=== PATIENT | female | born 1970 | race Caucasian/White ===

== ENCOUNTER 2018-04-06 15:20 | Inpatient (IN) ==
--- NOTE | 2018-04-06 16:12 | ED ---
HPI General Chief complaint: Respiratory Symptoms Stated complaint: Doc Sent/Abnl test Time Seen by Provider: 04/06/18 16:10 Source: patient Mode of arrival: ambulatory Limitations: no limitations History of Present Illness HPI narrative: 47-year-old female patient with history of 2 weeks of shortness of breath and dyspnea on exertion, has been evaluated with chest x-ray by primary care doctor and sent in for PE study today which showed a PE in her right lung. She is sent here by primary care doctor for treatment of PE. She continues to have palpitations and shortness of breath and dyspnea on exertion use. She denies any recent long plane or car rides. She denies any other issues. She does not have previous history of PE. Related Data Home Medications Medication Instructions Recorded Confirmed amitriptyline 50 mg PO DAILY 04/06/18 04/06/18 losartan 25 mg PO DAILY 04/06/18 04/06/18 metformin 500 mg PO DAILY 04/06/18 04/06/18 Allergies Allergy/AdvReac Type Severity Reaction Status Date / Time No Known Allergies Allergy Verified 04/06/18 15:54 Review of Systems ROS: all other systems reviewed are negative [facility] Medical History Medical History Diabetes (Acute) HTN (hypertension) (Acute) History of hysterectomy (Acute) Neuropathy (Acute) Surgical History Surgical History H/O ovarian cystectomy (Acute) History of hernia surgery (Acute) Social History Social History Substance History: No History of Abuse Smoking Status: Former smoker How Often Do You Have a Drink Containing Alcohol: 4 or more times a week Recent Travel in [facility] within the Last 8 Weeks: No Recent Out of Country Travel within the Last 8 Weeks: No Immunization History Tetanus Immunization: >5 Years Exam Narrative Exam Narrative: GENERAL: Well-developed middle-age female patient who is morbidly obese, currently not in acute distress at rest. Awake and oriented 3. SKIN: Focused skin assessment warm/dry. HEAD: Atraumatic. Normocephalic. EYES: Pupils equal and round. No scleral icterus. No injection or drainage. ENT: No nasal bleeding or discharge. Mucous membranes pink and moist. NECK: Trachea midline. No JVD. CARDIOVASCULAR: Fast and regular rhythm. No murmur appreciated. RESPIRATORY: No accessory muscle use. Clear to auscultation. Breath sounds equal bilaterally. GASTROINTESTINAL: Abdomen soft, non-tender, nondistended. Hepatic and splenic margins not palpable. MUSCULOSKELETAL: No obvious deformities. No clubbing. No cyanosis. No edema. NEUROLOGICAL: Awake and alert. No obvious cranial nerve deficits. Motor grossly within normal limits. Normal speech. PSYCHIATRIC: Appropriate mood and affect; insight and judgment normal. Course Initial Documented Vital Signs Temperature 98.0 F 04/06/18 15:25 Pulse Rate 108 H 04/06/18 15:25 Respiratory Rate 18 04/06/18 15:25 Blood Pressure 167/73 H 04/06/18 15:25 Pulse Oximetry 97 04/06/18 15:25 Last Documented Vital Signs Temperature 98.0 F 04/06/18 15:25 Pulse Rate 113 H 04/06/18 15:50 Respiratory Rate 26 H 04/06/18 15:50 Blood Pressure 148/67 H 04/06/18 15:50 Pulse Oximetry 98 04/06/18 15:50 Medical Decision Making MDM Narrative Medical decision making narrative: I have received the fax from [facility] and her CTA showed moderate thrombus burden with PE and filling defects notable and segmental branches bilaterally of the pulmonary arteries. At this point, patient was initiated on heparin protocol. Case was discussed with [facility] physician who would like the patient to be admitted to Dr. Abreu. Differential Diagnosis Differential Diagnosis: Pulmonary embolism Lab Data Result diagrams: 04/06/18 16:20 04/06/18 16:20 Lab Results 04/06/18 04/06/18 04/06/18 Range/Units 16:20 16:20 16:20 WBC 9.4 (4.0-11.0) th/mm3 RBC 5.21 (4.00-5.30) mil/mm3 Hgb 15.7 H (11.6-15.3) gm/dL Hct 44.7 (35.0-46.0) % MCV 85.9 (80.0-100.0) fL MCH 30.2 (27.0-34.0) pg MCHC 35.1 (32.0-36.0) % RDW 13.3 (11.6-17.2) % Plt Count 222 (150-450) th/mm3 MPV 9.2 (7.0-11.0) fL Prelim Diff (Auto) Slide review pending Neut % (Auto) 56.4 (16.0-70.0) % Lymph % (Auto) 31.2 (9.0-44.0) % Kent % (Auto) 6.9 (0.0-8.0) % Eos % (Auto) 4.8 H (0.0-4.0) % Baso % (Auto) 0.7 (0.0-2.0) % Neut # (Auto) 5.3 (1.8-7.7) th/mm3 Lymph # (Auto) 2.9 (1.0-4.8) th/mm3 Kent # (Auto) 0.6 (0.0-0.9) th/mm3 Eos # (Auto) 0.4 (0.0-0.4) th/mm3 Baso # (Auto) 0.1 (0.0-0.2) th/mm3 WBC Differential . Diff Scan Auto diff confirmed Differential Comment . Platelet Estimate Normal (Normal) Platelet Morphology Normal (Normal) PT 9.9 (9.8-11.6) sec INR 1.0 Ratio APTT 24.0 L (24.3-30.1) sec Sodium 136 (136-145) meq/L Potassium 3.9 (3.5-5.1) meq/L Chloride 101 (98-107) meq/L Carbon Dioxide 26.4 (21.0-32.0) meq/L Anion Gap 9 (5-15) meq/L BUN 10 (7-18) mg/dL Creatinine 0.81 (0.50-1.00) mg/dL Estimated GFR 76 L (>89) mL/min Random Glucose 154 H (74-106) mg/dL Calcium 9.1 (8.5-10.1) mg/dL Total Bilirubin 0.7 (0.2-1.0) mg/dL AST 43 H (15-37) U/L ALT 69 H (10-53) U/L Alkaline Phosphatase 77 (45-117) U/L Troponin I Less than 0.02 L (0.02-0.05) ng/mL Total Protein 8.3 H (6.4-8.2) g/dL Albumin 3.6 (3.4-5.0) g/dL Discharge Plan Discharge Details Anticipated Discharge Date: 04/06/18 Physicians Team ED Provider: Kerry Boudreaux Primary Care Provider: NON STAFF,PROVIDER Rxs /Orders / Referrals /Forms Prescriptions: No Action amitriptyline 50 mg Tablet 50 mg PO DAILY RF: 0 losartan 25 mg Tablet 25 mg PO DAILY RF: 0 metformin 500 mg Tablet Extended Release 24 Hr 500 mg PO DAILY RF: 0 Discharge Interventions Interventions: Vital Signs Last Done: 04/06/18 15:50 Status ED Status: With Doctor
[2018-04-06 16:38] LABS: Baso # (Auto) 0.1 th/mm3 (0.0-0.2); Baso % (Auto) 0.7 % (0.0-2.0); Eos # (Auto) 0.4 th/mm3 (0.0-0.4); Eos % (Auto) 4.8 % (0.0-4.0); Hematocrit 44.7 % (35.0-46.0); Hemoglobin 15.7 gm/dL (11.6-15.3); Lymph # (Auto) 2.9 th/mm3 (1.0-4.8); Lymph % (Auto) 31.2 % (9.0-44.0); Mean Corpuscular HGB Conc 35.1 % (32.0-36.0); Mean Corpuscular Hemoglobin 30.2 pg (27.0-34.0); Mean Corpuscular Volume 85.9 fL (80.0-100.0); Mean Platelet Volume 9.2 fL (7.0-11.0); Mono # (Auto) 0.6 th/mm3 (0.0-0.9); Mono % (Auto) 6.9 % (0.0-8.0); Neut # (Auto) 5.3 th/mm3 (1.8-7.7); Neut % (Auto) 56.4 % (16.0-70.0); Platelet Count 222 th/mm3 (150-450); Red Blood Count 5.21 mil/mm3 (4.00-5.30); Red Cell Distribution Width 13.3 % (11.6-17.2); White Blood Count 9.4 th/mm3 (4.0-11.0)
[2018-04-06 16:45] LABS: Prothrombin Time 9.9 sec (9.8-11.6)
[2018-04-06 17:01] LABS: Albumin 3.6 g/dL (3.4-5.0); Anion Gap 9 meq/L (5-15); Aspartate Aminotransferase 43 U/L (15-37); Blood Urea Nitrogen 10 mg/dL (7-18); Calcium 9.1 mg/dL (8.5-10.1); Carbon Dioxide 26.4 meq/L (21.0-32.0); Chloride 101 meq/L (98-107); Glomerular Filtration Rate 76 mL/min (>89); Glucose,Random 154 mg/dL (74-106); Potassium 3.9 meq/L (3.5-5.1); Sodium 136 meq/L (136-145)
[2018-04-06 17:02] LABS: Alanine Aminotransferase 69 U/L (10-53)
[2018-04-06 17:06] LABS: Alkaline Phosphatase 77 U/L (45-117); Total Protein 8.3 g/dL (6.4-8.2)
[2018-04-06 17:07] LABS: Platelet Estimate Normal (Normal); Platelet Morphology Normal (Normal)
[2018-04-06] MEDS ORDERED: Heparin 10,000 UNITS/10 ML Vial (for IV use) IV.PUSH STA (17:37)
[2018-04-06] MEDS ORDERED: Heparin Drip 25,000 UNIT/250 ML BAG IV.CONT PRN ×2 (17:37→18:02)
--- NOTE | 2018-04-06 20:43 | P.HP ---
History of Present Illness Service: . [facility]: PROVIDER NON STAFF Chief Complaint: sent by pcp for admit History of Present Illness: 47-year-old female patient with history of 2 weeks of shortness of breath and dyspnea on exertion, has been evaluated with chest x-ray by primary care doctor and sent in for PE study today which showed a PE in her right lung. She is sent here by primary care doctor for treatment of PE. She continues to have palpitations and shortness of breath and dyspnea on exertion use. She denies any recent long plane or car rides. She denies any other issues. She does not have previous history of PE. In er started on heparin and admit for continued care - Diagnosis (1) Pulmonary embolism (2) Diabetes (3) Hypertension Review of Systems All other systems reviewed negative except as stated in HPI PMFSH - History History Provided By: Patient - Medical History Medical History: Medical History (Last Reviewed 04/06/18 @ 16:11 by Kerry Boudreaux MD) Diabetes HTN (hypertension) History of hysterectomy Neuropathy - Surgical History Surgical History: Surgical History (Last Reviewed 04/06/18 @ 16:11 by Kerry Boudreaux MD) H/O ovarian cystectomy History of hernia surgery - Tobacco History Tobacco Use In Past 30 Days: No Smoking Status: Former smoker - Alcohol History How Often Do You Have a Drink Containing Alcohol: 4 or more times a week - Substance Use History Substance History: No History of Abuse - Travel History Recent Travel in the [place] Within the Last 8 Weeks: No Recent Travel Out of the Country Within the Last 8 Weeks: No - Immunization History Tetanus Immunization: >5 Years Medications and Allergies Active Medications: Active Medications Heparin Sodium/Dextrose (Heparin/D5w 25,000 U/250 Ml) 25,000 unit in 250 mls @ 18 mls/hr IV.CONT TITRATE PRN; Protocol PRN Reason: Per Protocol Allergies Allergy/AdvReac Type Severity Reaction Status Date / Time No Known Allergies Allergy Verified 04/06/18 15:54 Home Medications Medication Instructions Recorded Confirmed Type amitriptyline 50 mg PO DAILY 04/06/18 04/06/18 History losartan 25 mg PO DAILY 04/06/18 04/06/18 History metformin 500 mg PO DAILY 04/06/18 04/06/18 History Exam Vital signs: Vital Signs 04/06/18 15:25 08/10/18 15:50 04/06/18 19:29 Temperature 98.0 F 98.4 F Pulse Rate 108 H 113 H 95 H Respiratory Rate 18 26 H 19 Blood Pressure 167/73 H 148/67 H 170/78 H Pulse Oximetry 97 98 98 Intake & Output 04/06/18 04/06/18 04/07/18 06:59 18:59 06:59 Weight 147.418 kg Narrative: GENERAL: SKIN: Warm and dry. HEAD: Normocephalic. EYES: No scleral icterus. No injection or drainage. NECK: Supple, trachea midline. No JVD or lymphadenopathy. CARDIOVASCULAR: Regular rate and rhythm without murmurs, gallops, or rubs. RESPIRATORY: Breath sounds equal bilaterally. No accessory muscle use. GASTROINTESTINAL: Abdomen soft, non-tender, nondistended. MUSCULOSKELETAL: No cyanosis, or edema. BACK: Nontender without obvious deformity. No CVA tenderness. Results - Labs CBC & Chem 7: 04/06/18 16:20 04/06/18 16:20 Labs: Laboratory Results - last 24 hr 04/06/18 04/06/18 04/06/18 16:20 16:20 16:20 WBC 9.4 RBC 5.21 Hgb 15.7 H Hct 44.7 MCV 85.9 MCH 30.2 MCHC 35.1 RDW 13.3 Plt Count 222 MPV 9.2 Prelim Diff (Auto) Slide review pending Neut % (Auto) 56.4 Lymph % (Auto) 31.2 Cole % (Auto) 6.9 Eos % (Auto) 4.8 H Baso % (Auto) 0.7 Neut # (Auto) 5.3 Lymph # (Auto) 2.9 Cole # (Auto) 0.6 Eos # (Auto) 0.4 Baso # (Auto) 0.1 WBC Differential . Diff Scan Auto diff confirmed Differential Comment . Platelet Estimate Normal Platelet Morphology Normal PT 9.9 INR 1.0 APTT 24.0 L Sodium 136 Potassium 3.9 Chloride 101 Carbon Dioxide 26.4 Anion Gap 9 BUN 10 Creatinine 0.81 Estimated GFR 76 L Random Glucose 154 H Calcium 9.1 Total Bilirubin 0.7 AST 43 H ALT 69 H Alkaline Phosphatase 77 Troponin I Less than 0.02 L Total Protein 8.3 H Albumin 3.6 04/06/18 17:50 WBC RBC Hgb Hct MCV MCH MCHC RDW Plt Count MPV Prelim Diff (Auto) Neut % (Auto) Lymph % (Auto) Cole % (Auto) Eos % (Auto) Baso % (Auto) Neut # (Auto) Lymph # (Auto) Cole # (Auto) Eos # (Auto) Baso # (Auto) WBC Differential Diff Scan Differential Comment Platelet Estimate Platelet Morphology PT INR APTT 23.3 L Sodium Potassium Chloride Carbon Dioxide Anion Gap BUN Creatinine Estimated GFR Random Glucose Calcium Total Bilirubin AST ALT Alkaline Phosphatase Troponin I Total Protein Albumin Caprini VTE Risk Assessment Caprini VTE Risk Assessment: Moderate/High Risk (score >= 2) Caprini Risk Assessment Model: Point Value = 1 Point Value = 2 Point Value = 3 Point Value = 5 Age 41-60 Minor surgery BMI > 25 kg/m2 Swollen legs Varicose veins or History of unexplained or recurrent spontaneous Oral contraceptives or hormone replacement Sepsis (< 1 month) Serious lung disease, including pneumonia (< 1 month) Abnormal pulmonary function Acute myocardial infarction Congestive heart failure (< 1 month) History of inflammatory bowel disease Medical patient at bed rest Age 61-74 Arthroscopic surgery Major open surgery (> 45 min) Laparoscopic surgery (> 45 min) Malignancy Confined to bed (> 72 hours) Immobilizing plaster cast Central venous access Age >= 75 History of VTE Family history of VTE Factor V Leiden Prothrombin [id number] Lupus anticoagulant Anticardiolipin antibodies Elevated serum homocysteine Heparin-induced thrombocytopenia Other congenital or acquired thrombophilia Stroke (< 1 month) Elective arthroplasty Hip, pelvis, or leg fracture Acute spinal cord injury (< 1 month) Prophylaxis Regimen: Total Risk Factor Score Risk Level Prophylaxis Regimen 0-1 Low Early ambulation 2 Moderate Order ONE of the following: *Sequential Compression Device (SCD) *Heparin 5000 units SQ BID 3-4 Higher Order ONE of the following medications: *Heparin 5000 units SQ TID *Enoxaparin/Lovenox 40 mg SQ daily (WT < 150 kg, CrCl > 30 mL/min) *Enoxaparin/Lovenox 30 mg SQ daily (WT < 150 kg, CrCl > 10-29 mL/min) *Enoxaparin/Lovenox 30 mg SQ BID (WT < 150 kg, CrCl > 30 mL/min) AND/OR *Sequential Compression Device (SCD) 5 or more Highest Order ONE of the following medications: *Heparin 5000 units SQ TID (Preferred with Epidurals) *Enoxaparin/Lovenox 40 mg SQ daily (WT < 150 kg, CrCl > 30 mL/min) *Enoxaparin/Lovenox 30 mg SQ daily (WT < 150 kg, CrCl > 10-29 mL/min) *Enoxaparin/Lovenox 30 mg SQ BID (WT < 150 kg, CrCl > 30 mL/min) AND *Sequential Compression Device (SCD) Assessment and Plan - Assessment (1) Pulmonary embolism Code(s): I26.99 - Other pulmonary embolism without acute cor pulmonale Status : Acute Plan: start heparin protocol will get venous doppler further work as per hospitalists (2) Diabetes Code(s): E11.9 - Type 2 diabetes mellitus without complications Status: Chronic Plan: continue metformin (3) Hypertension Code(s): I10 - Essential (primary) hypertension Status: Acute Plan: continue losarten - Plan further plan as case develops Code Status: full Discussed Condition With: patient (1) Pulmonary embolism Qualifiers: Chronicity: acute (3) Hypertension Qualifiers: Hypertension type: essential hypertension Qualified Code(s): I10 - Essential (primary) hypertension
[2018-04-06] MEDS ORDERED: Temazepam 15 MG Capsule PO PRN (20:44)
[2018-04-06] MEDS ORDERED: Bisacodyl 10 MG Supp RECTAL PRN (20:44)
[2018-04-06] MEDS ORDERED: Acetaminophen 325 MG Tablet PO PRN (20:44)
[2018-04-06] MEDS ORDERED: Dextrose 50% in Water 50 ML Vial IV.PUSH PRN ×2 (20:50→20:51)
--- NOTE | 2018-04-06 21:07 | P.PNADD ---
Addendum to Inpatient Note Reason for Addendum: Additional Documentation Additional information: Patient about 1 month ago had increasing cramping to both lower extremities and had arterial studies done which were normal also did receive contrast and will hold metformin and use prn vasotec IV for blood pressure
--- NOTE | 2018-04-06 21:43 | US ---
EXAM DATE: 04/06/2018 9:37 PM EDT AGE/SEX: 47 years / Female INDICATIONS: Bilateral leg swelling. CLINICAL DATA: This is the patient's initial encounter. Patient reports that signs and symptoms have been present for 1 week and indicates a pain score of 2/10. MEDICAL/SURGICAL HISTORY: Hypertension. Diabetes. Neuropathy. Hysterectomy. Hernia repair. Ova jyothi cystectomy. COMPARISON: POI, US LEG VENOUS DOPPLER, LEFT, 05/20/2011. . TECHNIQUE: Venous ultrasound of both lower extremities was performed from the inguinal ligament to t he proximal calf. Real-time, color Doppler and spectral tracing, compression and augmentation techni ques were used. FINDINGS: Right Leg: Normal compression of the deep venous system from the inguinal region to the proximal laquita f. No echogenic clot is seen. Normal response of the venous system to augmentation and respiration. Left Leg: Normal compression of the deep venous system from the inguinal region to the proximal calf . No echogenic clot is seen. Normal response of the venous system to augmentation and respiration. Other: None. CONCLUSION: Negative study. No venous thrombosis of either lower extremity. Electronically signed by: Clifford Huitron MD 04/06/2018 9:42 PM EDT
[2018-04-06] MEDS: Senna/Docusate Sodium 8.6/50 MG Tablet PO SCH (23:15)
[2018-04-06] MEDS: Insulin NovoLOG Aspart Correctional Sugar Inj SQ SCH (23:48)
[2018-04-07 05:16] LABS: Hematocrit 42.9 % (35.0-46.0); Hemoglobin 14.7 gm/dL (11.6-15.3); Mean Corpuscular HGB Conc 34.3 % (32.0-36.0); Mean Corpuscular Volume 87.4 fL (80.0-100.0); Mean Platelet Volume 9.3 fL (7.0-11.0); Platelet Count 208 th/mm3 (150-450); White Blood Count 8.1 th/mm3 (4.0-11.0)
[2018-04-07 05:43] LABS: Alanine Aminotransferase 64 U/L (10-53); Albumin 3.2 g/dL (3.4-5.0); Anion Gap 10 meq/L (5-15); Aspartate Aminotransferase 38 U/L (15-37); Blood Urea Nitrogen 9 mg/dL (7-18); Calcium 8.7 mg/dL (8.5-10.1); Carbon Dioxide 26.5 meq/L (21.0-32.0); Chloride 102 meq/L (98-107); Glomerular Filtration Rate 80 mL/min (>89); Glucose,Random 179 mg/dL (74-106); Potassium 3.6 meq/L (3.5-5.1); Sodium 138 meq/L (136-145)
[2018-04-07 05:45] LABS: Alkaline Phosphatase 72 U/L (45-117); Total Protein 7.6 g/dL (6.4-8.2)
[2018-04-07] MEDS: Insulin NovoLOG Aspart Correctional Sugar Inj SQ SCH ×3 (06:32→17:52)
--- NOTE | 2018-04-07 08:22 | P.PNIM ---
Subjective Interval history: Pt reports that she is feeling better today Feels less SOB with ambulating in the room but has not walked around outside the room yet. Denies any chest pain, palpitations, dizziness or weakness. She denies any recent travel (long car rides or plane trips), denies being on any HRT (pt has had a hysterectomy in the past), no recent trauma Physical Exam Vital signs: Vital Signs 04/06/18 15:25 04/06/18 15:50 04/06/18 17:37 Temperature 98.0 F 98.5 F Pulse Rate 108 H 113 H 100 H Respiratory Rate 18 26 H 18 Blood Pressure 167/73 H 148/67 H 148/72 H Pulse Oximetry 97 98 93 L 04/06/18 19:29 04/06/18 20:00 04/06/18 23:45 Temperature 98.4 F Pulse Rate 95 H 103 H Respiratory Rate 19 Blood Pressure 170/78 H Pulse Oximetry 98 98 04/07/18 00:00 04/07/18 04:00 Temperature 98.6 F 98.6 F Pulse Rate 105 H 90 Respiratory Rate 18 18 Blood Pressure 145/77 H 140/82 Pulse Oximetry 95 95 Intake & Output 04/06/18 04/07/18 04/07/18 18:59 06:59 18:59 Intake Total 240 / 240 Balance 240 / 240 Weight 147.418 kg 145.6 kg Intake: Oral 240 / 240 Other: # Voids 3 Weight On Admission 145.3 kg Results - Labs CBC & Chem 7: 04/07/18 04:47 04/07/18 04:47 Laboratory Results - last 24 hr 04/06/18 04/06/18 04/06/18 16:20 16:20 16:20 WBC 9.4 RBC 5.21 Hgb 15.7 H Hct 44.7 MCV 85.9 MCH 30.2 MCHC 35.1 RDW 13.3 Plt Count 222 MPV 9.2 Prelim Diff (Auto) Slide review pending Neut % (Auto) 56.4 Lymph % (Auto) 31.2 Wilkinson % (Auto) 6.9 Eos % (Auto) 4.8 H Baso % (Auto) 0.7 Neut # (Auto) 5.3 Lymph # (Auto) 2.9 Wilkinson # (Auto) 0.6 Eos # (Auto) 0.4 Baso # (Auto) 0.1 WBC Differential . Diff Scan Auto diff confirmed Differential Comment . Platelet Estimate Normal Platelet Morphology Normal PT 9.9 INR 1.0 APTT 24.0 L Sodium 136 Potassium 3.9 Chloride 101 Carbon Dioxide 26.4 Anion Gap 9 BUN 10 Creatinine 0.81 Estimated GFR 76 L POC Glucose Random Glucose 154 H Calcium 9.1 Total Bilirubin 0.7 AST 43 H ALT 69 H Alkaline Phosphatase 77 Troponin I Less than 0.02 L Total Protein 8.3 H Albumin 3.6 04/06/18 04/06/18 04/06/18 17:50 23:31 23:39 WBC RBC Hgb Hct MCV MCH MCHC RDW Plt Count MPV Prelim Diff (Auto) Neut % (Auto) Lymph % (Auto) Wilkinson % (Auto) Eos % (Auto) Baso % (Auto) Neut # (Auto) Lymph # (Auto) Wilkinson # (Auto) Eos # (Auto) Baso # (Auto) WBC Differential Diff Scan Differential Comment Platelet Estimate Platelet Morphology PT INR APTT 23.3 L 75.3 H D Sodium Potassium Chloride Carbon Dioxide Anion Gap BUN Creatinine Estimated GFR POC Glucose 187 H Random Glucose Calcium Total Bilirubin AST ALT Alkaline Phosphatase Troponin I Total Protein Albumin 04/07/18 04/07/18 04/07/18 04:47 04:47 04:47 WBC 8.1 RBC 4.90 Hgb 14.7 Hct 42.9 MCV 87.4 MCH 30.0 MCHC 34.3 RDW 13.0 Plt Count 208 MPV 9.3 Prelim Diff (Auto) Neut % (Auto) Lymph % (Auto) Wilkinson % (Auto) Eos % (Auto) Baso % (Auto) Neut # (Auto) Lymph # (Auto) Wilkinson # (Auto) Eos # (Auto) Baso # (Auto) WBC Differential Diff Scan Differential Comment Platelet Estimate Platelet Morphology PT INR APTT 47.8 H D Sodium 138 Potassium 3.6 Chloride 102 Carbon Dioxide 26.5 Anion Gap 10 BUN 9 Creatinine 0.78 Estimated GFR 80 L POC Glucose Random Glucose 179 H Calcium 8.7 Total Bilirubin 0.7 AST 38 H ALT 64 H Alkaline Phosphatase 72 Troponin I Total Protein 7.6 D Albumin 3.2 L 04/07/18 06:24 WBC RBC Hgb Hct MCV MCH MCHC RDW Plt Count MPV Prelim Diff (Auto) Neut % (Auto) Lymph % (Auto) Wilkinson % (Auto) Eos % (Auto) Baso % (Auto) Neut # (Auto) Lymph # (Auto) Wilkinson # (Auto) Eos # (Auto) Baso # (Auto) WBC Differential Diff Scan Differential Comment Platelet Estimate Platelet Morphology PT INR APTT Sodium Potassium Chloride Carbon Dioxide Anion Gap BUN Creatinine Estimated GFR POC Glucose 186 H Random Glucose Calcium Total Bilirubin AST ALT Alkaline Phosphatase Troponin I Total Protein Albumin - Imaging Impressions Venous Doppler Study 04/06/18 00:00 CONCLUSION: Negative study. No venous thrombosis of either lower extremity. CTA Chest (04/06/18): 1. Limited CTA examination due to suboptimal contrast bolus timing. However, there is moderate thrombus burden pulmonary artery embolism with filling defects noted in segmental branches of the pulmonary arteries bilaterally. NO evidence for right heart strain at this time. 2. Hepatic steatosis. Assessment and Plan - Assessment (1) Pulmonary embolism Code(s): I26.99 - Other pulmonary embolism without acute cor pulmonale Status : Acute Plan: Pulmonary Embolism - Pt is a 47 y/o female with HTN, diabetes and morbid obesity. - Pt was sent to the ED by her PCP after being found to have pulmonary embolism. - Pt had been feeling SOB for around two weeks prior to seeking evaluation by her PCP. - Pt was sent for an outpt CXR and then CTA Chest (04/06/18) which noted: 1. Limited CTA examination due to suboptimal contrast bolus timing. However, there is moderate thrombus burden pulmonary artery embolism with filling defects noted in segmental branches of the pulmonary arteries bilaterally. NO evidence for right heart strain at this time. 2. Hepatic steatosis. - Pt was started on Heparin gtt - Venous Doppler Study (04/06/18) --> Negative study. No venous thrombosis of either lower extremity. - The etiology for her PE is unclear. No recent travel (plane rides or long car trips), she is not on any hormone replacement therapy, no recent trauma/injury, no family hx of any blood clots. She does report that she is mostly sedentary at work most every day. - Discussed with the pt the risks/benefits of NOAC vs. Coumadin. She would prefer a NOAC. We will start Eliquis 10mg BID x 7 days, then decrease to 5mg BID. - She will need hypercoagulable workup but has been started on Heparin, check Lupus anticoagulant, antiphospholipid Ab, Prothrombin gene mutation, beta GP, and anti-cardiolipin. These results will need to be followed up on by her PCP. Diabetes Mellitus - Metformin on hold after CTA on 04/06 - NovoLog SSI - Accu checks HTN - Home meds continued - Monitor (2) Diabetes Code(s): E11.9 - Type 2 diabetes mellitus without complications Status: Chronic (3) Hypertension Code(s): I10 - Essential (primary) hypertension Status: Acute (1) Pulmonary embolism Qualifiers: Chronicity: acute (3) Hypertension Qualifiers: Hypertension type: essential hypertension Qualified Code(s): I10 - Essential (primary) hypertension
--- NOTE | 2018-04-07 08:36 | ECG ---
Date Performed: 04/06/2018 Time Performed: 16:15:01 PTAGE: 47 years EKG: SINUS TACHYCARDIA MINIMAL VOLTAGE CRITERIA FOR LVH, CONSIDER NORMAL VARIANT ABNORMAL RHYTHM ECG NO PREVIOUS TRACING DOCTOR: Khadar Islas Interpretating Date/Time 04/07/2018 08:35:32
[2018-04-07] MEDS: Senna/Docusate Sodium 8.6/50 MG Tablet PO SCH (08:40)
[2018-04-07] MEDS ORDERED: Acetaminophen 325 MG Tablet PO ONE (14:06)
[2018-04-08] MEDS: Senna/Docusate Sodium 8.6/50 MG Tablet PO SCH ×2 (00:11→08:14)
[2018-04-08] MEDS: Insulin NovoLOG Aspart Correctional Sugar Inj SQ SCH ×3 (00:21→11:51)
[2018-04-08 05:59] LABS: Hemoglobin 14.4 gm/dL (11.6-15.3); Mean Corpuscular HGB Conc 34.3 % (32.0-36.0); Mean Corpuscular Hemoglobin 29.7 pg (27.0-34.0); Mean Corpuscular Volume 86.4 fL (80.0-100.0); Mean Platelet Volume 9.1 fL (7.0-11.0); Platelet Count 199 th/mm3 (150-450); Red Blood Count 4.87 mil/mm3 (4.00-5.30); White Blood Count 6.5 th/mm3 (4.0-11.0)
--- NOTE | 2018-04-08 09:15 | P.PNIM ---
Subjective Interval history: Pt feeling less SOB today She has been ambulating without difficulty Some mild SOB with ambulation Physical Exam Vital signs: Vital Signs 04/07/18 12:00 04/07/18 15:36 04/07/18 16:00 Temperature 97.6 F 97.7 F Pulse Rate 100 H 87 Respiratory Rate 18 20 Blood Pressure 138/63 116/64 Pulse Oximetry 96 96 94 L 04/07/18 20:00 04/08/18 00:00 04/08/18 04:00 Temperature 97.5 F L 97.4 F L 97.8 F Pulse Rate 83 77 88 Respiratory Rate 18 18 18 Blood Pressure 119/60 140/69 120/58 L Pulse Oximetry 95 94 L 95 04/08/18 08:00 04/08/18 08:12 Temperature 97.3 F L Pulse Rate 82 Respiratory Rate 18 Blood Pressure 136/63 Pulse Oximetry 94 L 95 Intake & Output 04/07/18 04/08/18 04/08/18 18:59 06:59 18:59 Intake Total 1600 / 1600 Output Total 300 / 300 Balance 1300 / 1300 Intake: IV 400 / 400 Heparin/D5W 25,000 U/250 mL 25, 150 / 150 000 unit In 250 ml @ 1,800 UNITS/HR 18 mls/hr IV.CONT TITRATE PRN Rx#:[id number] Oral 1200 / 1200 Output: Urine 300 / 300 Other: # Voids 5 # Bowel Movements 3 Narrative: GENERAL: NAD, AAOx3 CARDIO: Regular rate and rhythm without murmurs, gallops, or rubs. RESP: Breath sounds equal bilaterally. No accessory muscle use. ABD: Abdomen soft, non-tender, nondistended. EXT: No cyanosis, or edema. Results - Labs CBC & Chem 7: 04/08/18 04:47 04/07/18 04:47 Laboratory Results - last 24 hr 04/07/18 04/07/18 04/08/18 12:15 17:47 00:16 WBC RBC Hgb Hct MCV MCH MCHC RDW Plt Count MPV APTT POC Glucose 196 H 156 H 169 H 04/08/18 04/08/18 04/08/18 04:47 04:47 05:48 WBC 6.5 RBC 4.87 Hgb 14.4 Hct 42.0 MCV 86.4 MCH 29.7 MCHC 34.3 RDW 13.0 Plt Count 199 MPV 9.1 APTT 26.6 D POC Glucose 187 H Assessment and Plan - Assessment (1) Pulmonary embolism Code(s): I26.99 - Other pulmonary embolism without acute cor pulmonale Status : Acute Plan: Pulmonary Embolism - Pt is a 47 y/o female with HTN, diabetes and morbid obesity. - Pt was sent to the ED by her PCP after being found to have pulmonary embolism. - Pt had been feeling SOB for around two weeks prior to seeking evaluation by her PCP. - Pt was sent for an outpt CXR and then CTA Chest (04/06/18) which noted: 1. Limited CTA examination due to suboptimal contrast bolus timing. However, there is moderate thrombus burden pulmonary artery embolism with filling defects noted in segmental branches of the pulmonary arteries bilaterally. NO evidence for right heart strain at this time. 2. Hepatic steatosis. - Pt was started on Heparin gtt - Venous Doppler Study (04/06/18) --> Negative study. No venous thrombosis of either lower extremity. - The etiology for her PE is unclear. No recent travel (plane rides or long car trips), she is not on any hormone replacement therapy, no recent trauma/injury, no family hx of any blood clots. She does report that she is mostly sedentary at work most every day. - Discussed with the pt the risks/benefits of NOAC vs. Coumadin. She would prefer a NOAC. - Pt was started on Eliquis but the case was discussed with her new PCP, Dr. Miramontes and since he has samples of Xarelto at his office and the cost of Eliquis will be a financial strain for the patient it was decided to switch her to Xarelto 15mg po BID x 21 days (will be completed on 04/28/18 as she already had one day of Eliquis) and then will continue on Xarelto 20mg po daily to be started on 04/29/18. - Pts O2 sats with ambulation did not go below 88%, she will not qualify for any home O2 - Pt has been saturating well on RA at rest - Hypercoagulable workup has been ordered but has been started on Heparin so we checked Lupus anticoagulant, antiphospholipid Ab, Prothrombin gene mutation, beta GP, and anti-cardiolipin. These results will need to be followed up on by her PCP. - Pt will need to followup with her new PCP, Dr. Beach, in 1 week. Diabetes Mellitus - Metformin on hold after CTA on 04/06 - Metformin to be resumed on Monday04/09/18 HTN - Home meds continued The exam, history, and the medical decision-making described in the above note were completed with the assistance of the mid-level provider. I reviewed and agree with the findings presented. I attest that I had a [id number] encounter with the patient on the same day, and personally performed and documented my assessment and findings in the medical record. pt will f/u Dr Xie as new pcp. He has xarelto samples. will switch to xarelto from eliquis. pt agrees. f/u pending test with pcp...pt and informed of pending testing and need to check with pcp on f/u appt. (2) Diabetes Code(s): E11.9 - Type 2 diabetes mellitus without complications Status: Chronic (3) Hypertension Code(s): I10 - Essential (primary) hypertension Status: Acute (1) Pulmonary embolism Qualifiers: Chronicity: acute (3) Hypertension Qualifiers: Hypertension type: essential hypertension Qualified Code(s): I10 - Essential (primary) hypertension
[2018-04-08 12:33] VITALS: BP 143/73; PULSE 87; RESP 20; TEMP 97.6; O2SAT 95
[2018-04-08] MEDS ORDERED: Rivaroxaban 15 MG Tablet PO ONE (17:30)
== END 2018-04-08 17:18 | disposition home or self-care (01) ==
LOC: NEDA 15:20 → NEPC 15:20 → N07 15:20 → NEDA 21:42 → N07 21:59
PROVIDERS: ADMIT Hospitalist; ATTEND Hospitalist